=== PATIENT | female | born 1950 | race African-American/Black ===

== ENCOUNTER 2016-12-10 13:20 | Day surgery (SDC) | payer OTHER ==
[2016-12-09 12:54] VITALS: BMI 27.0
[2016-12-10 14:05] LABS: INR 0.96 (0.82-1.09); PROTHROMBIN TIME (PATIENT) 10.6 SEC (9.98-11.88)
--- NOTE | 2016-12-10 14:14 | HP ---
History & Physical Update - History History: No Change - Physical Physical: No Change - Assessment Assessment: No Change - Plan Plan: No Change
[2016-12-10] MEDS ORDERED: IBUPROFEN 800 MG/8 ML IJ IVPB PRN (14:15)
[2016-12-10] MEDS ORDERED: DEXTROSE 5%-0.45% SALINE 1,000 ML IV SCH (14:15)
[2016-12-10] MEDS ORDERED: ACETAMINOPHEN 1000 MG/100 ML VIAL (NON FORMULARY) IVPB ONE ×2 (14:16→16:55)
[2016-12-10] MEDS ORDERED: PROPOFOL 20 ML ONE (15:16)
[2016-12-10] MEDS ORDERED: MIDAZOLAM HCL 2 MG/2 ML SINGLE DOSE VIAL ONE (15:16)
[2016-12-10] MEDS ORDERED: LIDOCAINE HCL 1%, 10 MG/ML (20ML VIAL) ONE (15:42)
[2016-12-10] MEDS ORDERED: ceFAZolin SODIUM 1 GM VIAL ONE (15:49)
[2016-12-10] MEDS ORDERED: ceFAZolin SODIUM 1 GM VIAL IVPB ONE (15:50)
[2016-12-10] MEDS ORDERED: ONDANSETRON 4 MG/2 ML VIAL IVPUSH PRN (15:54)
[2016-12-10] MEDS ORDERED: oxyCODONE HCL 5 MG TABLET PO ONE (15:55)
[2016-12-10] MEDS ORDERED: LACTATED RINGERS SOLUTION 1,000 ML IV SCH (16:00)
[2016-12-10] MEDS ORDERED: ACETAMINOPHEN INJECTION 100 ML IVPB ONE (16:42)
[2016-12-10 17:29] VITALS: TEMP 98.3
[2016-12-10 18:42] VITALS: BP 134/50; PULSE 58
--- NOTE | 2016-12-11 11:08 | OP ---
DATE OF OPERATION: 12/10/2016 SURGEON: Brad Mcelroy MD ANESTHESIOLOGIST: PREOPERATIVE DIAGNOSIS: InterStim implant removal for magnetic resonance imaging. POSTOPERATIVE DIAGNOSIS: InterStim implant removal for magnetic resonance imaging. PROCEDURE: InterStim lead and battery removal. ESTIMATED BLOOD LOSS: 5 mL. ANESTHESIA: Local with IV sedation. PREOPERATIVE INDICATIONS: The patient is a 66-year-old female with urge urinary incontinence. She has had an InterStim implant for year, which has been functioning. However, she requires an MRI for other medical conditions, and this is to be removed. THE OPERATION: The patient was brought to the OR, placed on the table in the prone position. All pressure points were protected. Patient was given IV antibiotics and IV sedation. Time-out was performed. The back was prepped and draped sterilely. The incision over the previous battery was anesthetized with lidocaine. An incision was made. The battery was identified and brought out of the pocket. The lead was then identified. An incision was made, a paramedian on the right side. The lead was exposed. It was then removed in total. The lead and battery were sent for pathological confirmation. Good hemostasis was maintained. The incisions were closed with 3-0 Vicryl suture and Steri-Strips. The wounds were dressed. The patient was woken up. BRAD MCELROY M.D. [id number]
--- NOTE | 2016-12-14 08:29 | PATH ---
Surgical Pathology Report Patient Name: SILVIA LOUIS Med. Rec. #: [id number] /Age/Gender: 1950 (Age: 66) / F Account: [id number] Location: [facility] SURGICAL Taken: 12/10/2016 Received: 12/13/2016 Reported: 12/14/2016 Physicians: Brad Mcelroy M.D. Specimen(s) Received REMOVED INTERSTIM IMPLANT Clinical History Full InterStim removal (incontinence) Final Diagnosis MANAGEMENT COORDINATOR, BLADDER, REMOVAL: INTERSTIM IMPLANT (GROSS ONLY). Electronically Signed Delvin Arvizu M.D. Gross Description Received fresh labeled "removed InterStim implant," is a 6.0 x 5.5 x 1.0 cm louise metallic device, consistent with an InterStim implant. The device displays a 25 cm in length portion of wire extending from one aspect. The specimen has the following inscription: "InterStim SN [id number] [employer] [facility]." Separately received within the same container is an additional 11 cm in length portion of wire. No soft tissue is present. No sections are submitted, gross only. DL/12/13/2016 saudi12/13/2016
== END 2016-12-10 19:52 | disposition home or self-care (01) ==
LOC: JASU-SURG 13:20 → JOR 13:20 → JASU-SURG 19:52
PROVIDERS: ATTEND Urology
PROC: 0JPT0MZ Removal of Stimulator Generator from Trunk Subcutaneous Tissue and Fascia, Open Approach (ICD-10-PCS; 2016-12-10)
PROC: 01PY0MZ Removal of Neurostimulator Lead from Peripheral Nerve, Open Approach (ICD-10-PCS; 2016-12-10)
PROC: 0JPT0MZ Removal of Stimulator Generator from Trunk Subcutaneous Tissue and Fascia, Open Approach (ICD-10-PCS; 2016-12-10)
PROC: 01PY0MZ Removal of Neurostimulator Lead from Peripheral Nerve, Open Approach (ICD-10-PCS; principal; 2016-12-10 15:30)
DX: N39.46 Mixed incontinence (principal)
CPT/HCPCS: 36415; 85610; 85730; 88300-TC; 94760